=== PATIENT | male | born 1945 | race Caucasian/White ===

== ENCOUNTER 2016-07-12 11:07 | Outpatient (CLI) | payer MEDICAID, MEDICARE ==
[~2016-07-12 11:07] MED LIST: FERUMOXYTOL (NON-ESRD) 510 MG/NS 100 ML IV PRN; NORMAL SALINE 250 ML IV PRN
[2016-07-12 11:47] VITALS: BP 126/85
== END 2016-07-12 13:08 | disposition home or self-care (01) ==
LOC: II 11:07 → 5TH 11:11 → II 13:08
PROVIDERS: ATTEND Specialist
PROC: 3E033GC Introduction of Other Therapeutic Substance into Peripheral Vein, Percutaneous Approach (ICD-10-PCS; principal; 2016-07-12)
DX: D50.9 Iron deficiency anemia, unspecified (principal); N18.3 Chronic kidney disease, stage 3 (moderate)
CPT/HCPCS: 96365; Q0138

== ENCOUNTER 2016-07-20 08:03 | Outpatient (CLI) | payer MEDICARE ==
[2016-07-20 08:30] VITALS: BP 109/58
== END 2016-07-20 11:30 | disposition home or self-care (01) ==
LOC: II 08:03 → 5TH 08:08 → II 11:30
PROVIDERS: ATTEND Specialist
PROC: 3E033GC Introduction of Other Therapeutic Substance into Peripheral Vein, Percutaneous Approach (ICD-10-PCS; principal; 2016-07-20)
DX: D50.9 Iron deficiency anemia, unspecified (principal); N18.3 Chronic kidney disease, stage 3 (moderate)
CPT/HCPCS: 96365; Q0138